=== PATIENT | male | born 1960 | race Caucasian/White ===

== ENCOUNTER 2018-08-15 01:58 | Day surgery (SDC) | payer OTHER ==
[~2018-08-15 01:58] MED LIST: CHOLESTERAL MED; FLUT.05NI; HYDMOR2 PO; ONDA4 PO; WARF7.5
[2018-08-15] MEDS ORDERED: Bisoprolol-Hct1 EAC2 PO (07:56)
--- NOTE | 2018-08-15 08:01 | NUR ---
PT IN RM AFTER SHOT X10 MIN. PT REPORTS HE IS WORKING AND CAME IN FOR INJECTION. NO COMPLAINTS @ THIS TIME AND PT TEACHING ON MED
== END 2018-08-15 07:58 | disposition home or self-care (01) ==
LOC: ATC 01:58
DX: I35.0 Nonrheumatic aortic (valve) stenosis (principal); I10 Essential (primary) hypertension; E78.5 Hyperlipidemia, unspecified; E66.9 Obesity, unspecified; Z79.01 Long term (current) use of anticoagulants; Z79.899 Other long term (current) drug therapy; Z88.0 Allergy status to penicillin
CPT/HCPCS: 96372; J1650

== ENCOUNTER 2018-08-16 07:27 | Day surgery (SDC) | payer OTHER ==
[~2018-08-16 07:27] MED LIST changes: +Bisoprolol-Hct1 EAC2 PO
== END 2018-08-16 07:40 | disposition home or self-care (01) ==
LOC: ATC 07:27
DX: I35.0 Nonrheumatic aortic (valve) stenosis (principal); I10 Essential (primary) hypertension; E78.5 Hyperlipidemia, unspecified; E66.9 Obesity, unspecified; Z79.899 Other long term (current) drug therapy; Z79.01 Long term (current) use of anticoagulants; Z88.0 Allergy status to penicillin
CPT/HCPCS: 96372; J1650

== ENCOUNTER 2018-08-17 07:35 | Day surgery (SDC) | payer OTHER | END 2018-08-17 07:48 | disposition home or self-care (01) | LOC: ATC 07:35 | DX: I35.0 Nonrheumatic aortic (valve) stenosis (principal); Z79.01 Long term (current) use of anticoagulants | CPT/HCPCS: 96372; J1650 ==

== ENCOUNTER 2018-08-18 00:10 | Day surgery (SDC) | payer OTHER | END 2018-08-18 07:48 | disposition home or self-care (01) | LOC: ATC 00:10 | DX: I35.0 Nonrheumatic aortic (valve) stenosis (principal); Z79.01 Long term (current) use of anticoagulants | CPT/HCPCS: 96372; J1650 ==

== ENCOUNTER 2018-08-19 00:16 | Day surgery (SDC) | payer OTHER | END 2018-08-19 07:52 | disposition home or self-care (01) | LOC: ATC 00:16 | DX: I35.0 Nonrheumatic aortic (valve) stenosis (principal); Z79.01 Long term (current) use of anticoagulants; Z88.0 Allergy status to penicillin | CPT/HCPCS: 96372; J1650 ==

== ENCOUNTER 2018-08-20 00:05 | Day surgery (SDC) | payer OTHER | END 2018-08-20 08:13 | disposition home or self-care (01) | LOC: ATC 00:05 | DX: I35.0 Nonrheumatic aortic (valve) stenosis (principal); I10 Essential (primary) hypertension; E78.49 Other hyperlipidemia; E66.9 Obesity, unspecified; Z79.01 Long term (current) use of anticoagulants; Z79.899 Other long term (current) drug therapy; Z88.0 Allergy status to penicillin | CPT/HCPCS: 96372; J1650 ==

== ENCOUNTER 2018-08-21 00:21 | Day surgery (SDC) | payer OTHER | END 2018-08-21 07:47 | disposition home or self-care (01) | LOC: ATC 00:21 | DX: I35.0 Nonrheumatic aortic (valve) stenosis (principal); I10 Essential (primary) hypertension; E78.49 Other hyperlipidemia; E66.9 Obesity, unspecified; Z79.01 Long term (current) use of anticoagulants; Z79.899 Other long term (current) drug therapy; Z88.0 Allergy status to penicillin | CPT/HCPCS: 96372; J1650 ==

== ENCOUNTER 2018-08-23 07:29 | Day surgery (SDC) | payer OTHER ==
[2018-08-23] MEDS ORDERED: WARF7.5 PO (07:45)
== END 2018-08-23 07:40 | disposition home or self-care (01) ==
LOC: ATC 07:29
DX: Z51.81 Encounter for therapeutic drug level monitoring (principal); I35.0 Nonrheumatic aortic (valve) stenosis; M17.0 Bilateral primary osteoarthritis of knee; I10 Essential (primary) hypertension; E66.9 Obesity, unspecified; E78.49 Other hyperlipidemia; R73.01 Impaired fasting glucose; J30.2 Other seasonal allergic rhinitis; J32.8 Other chronic sinusitis; L23.7 Allergic contact dermatitis due to plants, except food; Z79.01 Long term (current) use of anticoagulants; Z88.0 Allergy status to penicillin; Z79.899 Other long term (current) drug therapy; Z95.2 Presence of prosthetic heart valve; Z98.890 Other specified postprocedural states; Z68.34 Body mass index [BMI] 34.0-34.9, adult
CPT/HCPCS: 36416; 85610; 96372; J1650

== ENCOUNTER 2018-08-24 07:46 | Day surgery (SDC) | payer OTHER ==
[~2018-08-24 07:46] MED LIST changes: +WARF7.5 PO
--- NOTE | 2018-08-24 08:47 | NUR ---
FINGERSTICK INR 1.0 MEDICATION GIVEN PER ORDERS.
== END 2018-08-24 08:02 | disposition home or self-care (01) ==
LOC: ATC 07:46
DX: Z51.81 Encounter for therapeutic drug level monitoring (principal); I35.0 Nonrheumatic aortic (valve) stenosis; M17.0 Bilateral primary osteoarthritis of knee; E78.49 Other hyperlipidemia; I10 Essential (primary) hypertension; E66.9 Obesity, unspecified; J30.2 Other seasonal allergic rhinitis; J32.8 Other chronic sinusitis; L23.7 Allergic contact dermatitis due to plants, except food; R73.01 Impaired fasting glucose; Z88.0 Allergy status to penicillin; Z68.34 Body mass index [BMI] 34.0-34.9, adult; Z79.01 Long term (current) use of anticoagulants; Z79.899 Other long term (current) drug therapy
CPT/HCPCS: 36416; 85610; 96372; J1650

== ENCOUNTER 2018-08-25 00:10 | Day surgery (SDC) | payer OTHER ==
--- NOTE | 2018-08-25 07:49 | NUR ---
INR 1.1 ON ATC MACHINE.
== END 2018-08-25 07:45 | disposition home or self-care (01) ==
LOC: ATC 00:10
DX: I35.0 Nonrheumatic aortic (valve) stenosis (principal); Z79.01 Long term (current) use of anticoagulants; Z88.0 Allergy status to penicillin
CPT/HCPCS: 36416; 85610; 96372; J1650

== ENCOUNTER 2018-08-26 02:59 | Day surgery (SDC) | payer OTHER | END 2018-08-26 07:40 | disposition home or self-care (01) | LOC: ATC 02:59 | DX: I35.0 Nonrheumatic aortic (valve) stenosis (principal); I10 Essential (primary) hypertension; E78.49 Other hyperlipidemia; E66.9 Obesity, unspecified; Z79.01 Long term (current) use of anticoagulants; Z79.899 Other long term (current) drug therapy; Z88.0 Allergy status to penicillin | CPT/HCPCS: 85610; 96372; J1650 ==

== ENCOUNTER 2018-08-27 00:20 | Day surgery (SDC) | payer OTHER ==
--- NOTE | 2018-08-27 08:06 | NUR ---
INR IS 1.4 ON ATC MACHINE.
== END 2018-08-27 07:55 | disposition home or self-care (01) ==
LOC: ATC 00:20
DX: I35.0 Nonrheumatic aortic (valve) stenosis (principal); I10 Essential (primary) hypertension; E78.49 Other hyperlipidemia; E66.9 Obesity, unspecified; Z79.01 Long term (current) use of anticoagulants; Z79.899 Other long term (current) drug therapy; Z88.0 Allergy status to penicillin
CPT/HCPCS: 36416; 85610; 96372; J1650

== ENCOUNTER 2018-08-28 00:22 | Day surgery (SDC) | payer OTHER ==
--- NOTE | 2018-08-28 08:41 | NUR ---
FINGERSTICK INR 1.5 MEDICATION GIVEN PER ORDERS
== END 2018-08-28 08:25 | disposition home or self-care (01) ==
LOC: ATC 00:22
DX: Z51.81 Encounter for therapeutic drug level monitoring (principal); I10 Essential (primary) hypertension; E78.5 Hyperlipidemia, unspecified; E66.9 Obesity, unspecified; Z79.01 Long term (current) use of anticoagulants; Z95.2 Presence of prosthetic heart valve; Z88.0 Allergy status to penicillin
CPT/HCPCS: 36416; 85610; 96372; J1650

== ENCOUNTER 2018-08-29 00:11 | Day surgery (SDC) | payer OTHER | END 2018-08-29 08:09 | disposition home or self-care (01) | LOC: ATC 00:11 | DX: I35.0 Nonrheumatic aortic (valve) stenosis (principal); I10 Essential (primary) hypertension; E78.49 Other hyperlipidemia; E66.9 Obesity, unspecified; Z79.899 Other long term (current) drug therapy; Z79.01 Long term (current) use of anticoagulants; Z88.0 Allergy status to penicillin | CPT/HCPCS: 36416; 85610; 96372; J1650 ==

== ENCOUNTER 2018-08-30 08:21 | Day surgery (SDC) | payer OTHER ==
--- NOTE | 2018-08-30 08:42 | NUR ---
FINGERSTICK INR = 2.3 TODAY. LOVENOX GIVEN.
== END 2018-08-30 23:08 | disposition home or self-care (01) ==
LOC: ATC 08:21
DX: I35.0 Nonrheumatic aortic (valve) stenosis (principal); I10 Essential (primary) hypertension; E78.49 Other hyperlipidemia; E66.9 Obesity, unspecified; Z79.01 Long term (current) use of anticoagulants; Z79.899 Other long term (current) drug therapy; Z88.0 Allergy status to penicillin
CPT/HCPCS: 36416; 85610; 96372; J1650

== ENCOUNTER 2018-08-31 07:53 | Day surgery (SDC) | payer OTHER ==
--- NOTE | 2018-08-31 08:12 | NUR ---
PT'S INR HAS BEEN > THAN 2.0 FOR TWO CONSECUTIVE DAYS. DISCONTINUE LOVENOX PER MD ORDER. PT TO F/U WITH PCP RE: COUMADIN DOSING AND INR MONITORING.
== END 2018-08-31 08:02 | disposition home or self-care (01) ==
LOC: ATC 07:53
DX: I35.0 Nonrheumatic aortic (valve) stenosis (principal); I10 Essential (primary) hypertension; E78.49 Other hyperlipidemia; E66.9 Obesity, unspecified; Z79.899 Other long term (current) drug therapy; Z79.01 Long term (current) use of anticoagulants; Z88.0 Allergy status to penicillin
CPT/HCPCS: 36416; 85610; 99211; J1650

== ENCOUNTER 2018-09-01 00:12 | Day surgery (SDC) | payer OTHER | END 2018-09-01 22:47 | disposition home or self-care (01) | LOC: ATC 00:12 | DX: Z51.81 Encounter for therapeutic drug level monitoring (principal); Z79.01 Long term (current) use of anticoagulants; Z79.899 Other long term (current) drug therapy; Q23.0 Congenital stenosis of aortic valve; M17.0 Bilateral primary osteoarthritis of knee; I07.1 Rheumatic tricuspid insufficiency; E78.5 Hyperlipidemia, unspecified; E66.9 Obesity, unspecified; I10 Essential (primary) hypertension; Z88.0 Allergy status to penicillin; R73.01 Impaired fasting glucose; J30.2 Other seasonal allergic rhinitis; J32.8 Other chronic sinusitis; L24.7 Irritant contact dermatitis due to plants, except food ==

== ENCOUNTER → 2019-10-01 | Outpatient (CLI) | payer OTHER ==
[~2019-10-01] MED LIST changes: +BISOPROLOL-HCT1 EAC1 PO; +COUMADIN6 MG PO
[2019-10-01 14:12] LABS: BASOPHILS ABSOLUTE AUTO 0.04 K/mm3 (0.00-0.23); BASOPHILS PERCENT AUTO 1 % (0-2); EOSINOPHILS ABSOLUTE AUTO 0.94 K/mm3 (0.00-0.68); EOSINOPHILS PERCENT AUTO 11 % (0-6); IMMATURE GRAN ABSOLUTE AUTO 0.02 K/mm3 (0.00-0.10); IMMATURE GRAN PERCENT AUTO 0 % (0-1); LYMPHOCYTES ABSOLUTE AUTO 1.04 K/mm3 (0.84-5.20); LYMPHOCYTES PERCENT AUTO 12 % (21-46); MONOCYTES ABSOLUTE AUTO 1.18 K/mm3 (0.16-1.47); MONOCYTES PERCENT AUTO 14 % (4-13); Mean Corpuscular HGB Conc 30.3 g/dL (31.5-36.5); Mean Corpuscular Volume 89 fL (80-100); Mean Platelet Volume 10.3 fL (9.1-12.4); NEUTROPHILS ABSOLUTE AUTO 5.55 K/mm3 (1.96-9.15); NEUTROPHILS PERCENT AUTO 63 % (41-73); Platelet Count 405 K/mm3 (150-400); RDW Coefficient Variation 15.7 % (11.7-14.2); RDW Standard Deviation 50.4 fL (35.1-46.3); Red Blood Cell Count 3.71 M/mm3 (4.30-5.90); White Blood Cell Count 8.77 K/mm3 (4.00-11.30)
[2019-10-01 14:36] LABS: Alanine Aminotransfer (ALT/SGP 28 U/L (12-78); Albumin, Blood 2.5 g/dL (3.4-5.0); Albumin/Globulin Ratio 0.8 (0.8-1.8); Alk Phos 71 U/L (50-136); Anion Gap 5 mmol/L (6-16); Aspartate Aminotrans (AST/SGOT 16 U/L (12-37); Bilirubin, Total 0.2 mg/dL (0.1-1.0); Blood Urea Nitrogen 23 mg/dL (8-24); Bun/Creatinine Ratio 19.3 (12.0-20.0); CO2, Blood 26 mmol/L (21-32); Chloride, Blood 108 mmol/L (98-108); Creatinine, Blood 1.19 mg/dL (0.60-1.20); Globulin, Blood 3.2 g/dL (2.2-4.0); Glomerular Filtration Rate >60 (60-); Glucose, Blood 91 mg/dL (70-99); Potassium, Blood 3.4 mmol/L (3.5-5.5); Sodium, Blood 139 mmol/L (136-145); Total Protein, Blood 5.7 g/dL (6.4-8.2)
== END | disposition home or self-care (01) ==
LOC: LAB HH 13:25 → LAB 13:25
PROVIDERS: Internal Medicine Infectious Disease
DX: R79.82 Elevated C-reactive protein (CRP) (principal); R79.89 Other specified abnormal findings of blood chemistry; R68.89 Other general symptoms and signs; R70.0 Elevated erythrocyte sedimentation rate
CPT/HCPCS: 80053; 85025; 85651; 86140

== ENCOUNTER → 2019-10-08 | Outpatient (CLI) | payer OTHER ==
[2019-10-08 11:03] LABS: BASOPHILS ABSOLUTE AUTO 0.13 K/mm3 (0.00-0.23); BASOPHILS PERCENT AUTO 2 % (0-2); EOSINOPHILS ABSOLUTE AUTO 1.19 K/mm3 (0.00-0.68); EOSINOPHILS PERCENT AUTO 22 % (0-6); Hematocrit 37.6 % (37.0-53.0); Hemoglobin 11.6 g/dL (13.5-17.5); IMMATURE GRAN ABSOLUTE AUTO 0.04 K/mm3 (0.00-0.10); IMMATURE GRAN PERCENT AUTO 1 % (0-1); LYMPHOCYTES ABSOLUTE AUTO 0.82 K/mm3 (0.84-5.20); LYMPHOCYTES PERCENT AUTO 15 % (21-46); MONOCYTES ABSOLUTE AUTO 1.88 K/mm3 (0.16-1.47); MONOCYTES PERCENT AUTO 34 % (4-13); Mean Corpuscular HGB 26.2 pg (26.0-34.0); Mean Corpuscular HGB Conc 30.9 g/dL (31.5-36.5); Mean Corpuscular Volume 85 fL (80-100); Mean Platelet Volume 10.2 fL (9.1-12.4); NEUTROPHILS ABSOLUTE AUTO 1.41 K/mm3 (1.96-9.15); NEUTROPHILS PERCENT AUTO 26 % (41-73); Platelet Count 411 K/mm3 (150-400); RDW Coefficient Variation 14.5 % (11.7-14.2); RDW Standard Deviation 45.1 fL (35.1-46.3); Red Blood Cell Count 4.42 M/mm3 (4.30-5.90); White Blood Cell Count 5.47 K/mm3 (4.00-11.30)
[2019-10-08 11:17] LABS: Alanine Aminotransfer (ALT/SGP 33 U/L (12-78); Albumin, Blood 2.7 g/dL (3.4-5.0); Albumin/Globulin Ratio 0.8 (0.8-1.8); Alk Phos 109 U/L (50-136); Anion Gap 7 mmol/L (6-16); Aspartate Aminotrans (AST/SGOT 16 U/L (12-37); Bilirubin, Total 0.2 mg/dL (0.1-1.0); Blood Urea Nitrogen 20 mg/dL (8-24); Bun/Creatinine Ratio 20.7 (12.0-20.0); CO2, Blood 27 mmol/L (21-32); Calcium, Blood 8.9 mg/dL (8.5-10.1); Chloride, Blood 104 mmol/L (98-108); Creatinine, Blood 0.97 mg/dL (0.60-1.20); Globulin, Blood 3.6 g/dL (2.2-4.0); Glomerular Filtration Rate >60 (60-); Glucose, Blood 141 mg/dL (70-99); Potassium, Blood 3.6 mmol/L (3.5-5.5); Sodium, Blood 138 mmol/L (136-145); Total Protein, Blood 6.3 g/dL (6.4-8.2)
== END | disposition home or self-care (01) ==
LOC: LAB 10:49 → LAB SHORT 10:49
PROVIDERS: Emergency Medicine Emergency Medical Services
DX: R70.0 Elevated erythrocyte sedimentation rate (principal); R79.82 Elevated C-reactive protein (CRP); R79.89 Other specified abnormal findings of blood chemistry; R68.89 Other general symptoms and signs
CPT/HCPCS: 80053; 85025; 85651; 86140

== ENCOUNTER → 2019-10-22 | Outpatient (CLI) | payer OTHER ==
[2019-10-22 10:59] LABS: BASOPHILS ABSOLUTE AUTO 0.19 K/mm3 (0.00-0.23); BASOPHILS PERCENT AUTO 2 % (0-2); EOSINOPHILS ABSOLUTE AUTO 1.55 K/mm3 (0.00-0.68); EOSINOPHILS PERCENT AUTO 15 % (0-6); Hematocrit 36.5 % (37.0-53.0); Hemoglobin 11.2 g/dL (13.5-17.5); IMMATURE GRAN PERCENT AUTO 2 % (0-1); LYMPHOCYTES ABSOLUTE AUTO 0.97 K/mm3 (0.84-5.20); LYMPHOCYTES PERCENT AUTO 10 % (21-46); MONOCYTES ABSOLUTE AUTO 1.73 K/mm3 (0.16-1.47); MONOCYTES PERCENT AUTO 17 % (4-13); Mean Corpuscular HGB 25.4 pg (26.0-34.0); Mean Corpuscular HGB Conc 30.7 g/dL (31.5-36.5); Mean Corpuscular Volume 83 fL (80-100); Mean Platelet Volume 10.2 fL (9.1-12.4); NEUTROPHILS ABSOLUTE AUTO 5.53 K/mm3 (1.96-9.15); NEUTROPHILS PERCENT AUTO 54 % (41-73); Platelet Count 283 K/mm3 (150-400); RDW Coefficient Variation 14.5 % (11.7-14.2); RDW Standard Deviation 44.5 fL (35.1-46.3); Red Blood Cell Count 4.41 M/mm3 (4.30-5.90); White Blood Cell Count 10.17 K/mm3 (4.00-11.30)
[2019-10-22 11:12] LABS: Alanine Aminotransfer (ALT/SGP 35 U/L (12-78); Albumin, Blood 2.7 g/dL (3.4-5.0); Albumin/Globulin Ratio 0.8 (0.8-1.8); Alk Phos 104 U/L (50-136); Anion Gap 6 mmol/L (6-16); Aspartate Aminotrans (AST/SGOT 17 U/L (12-37); Bilirubin, Total 0.2 mg/dL (0.1-1.0); Blood Urea Nitrogen 22 mg/dL (8-24); CO2, Blood 28 mmol/L (21-32); Calcium, Blood 8.1 mg/dL (8.5-10.1); Chloride, Blood 105 mmol/L (98-108); Creatinine, Blood 0.96 mg/dL (0.60-1.20); Globulin, Blood 3.4 g/dL (2.2-4.0); Glomerular Filtration Rate >60 (60-); Glucose, Blood 176 mg/dL (70-99); Potassium, Blood 3.4 mmol/L (3.5-5.5); Sodium, Blood 139 mmol/L (136-145); Total Protein, Blood 6.1 g/dL (6.4-8.2)
== END | disposition home or self-care (01) ==
LOC: LAB 10:53 → LAB SHORT 10:53
PROVIDERS: Internal Medicine Infectious Disease
DX: R70.0 Elevated erythrocyte sedimentation rate (principal); R79.89 Other specified abnormal findings of blood chemistry; R79.82 Elevated C-reactive protein (CRP); R68.89 Other general symptoms and signs
CPT/HCPCS: 80053; 85025; 85651; 86140

== ENCOUNTER → 2019-10-29 | Outpatient (CLI) | payer OTHER ==
[2019-10-29 16:45] LABS: Alanine Aminotransfer (ALT/SGP 45 U/L (12-78); Albumin, Blood 2.8 g/dL (3.4-5.0); Albumin/Globulin Ratio 0.7 (0.8-1.8); Alk Phos 113 U/L (50-136); Anion Gap 7 mmol/L (6-16); Aspartate Aminotrans (AST/SGOT 21 U/L (12-37); Bilirubin, Total 0.3 mg/dL (0.1-1.0); Blood Urea Nitrogen 17 mg/dL (8-24); Bun/Creatinine Ratio 20.1 (12.0-20.0); CO2, Blood 26 mmol/L (21-32); Calcium, Blood 9.1 mg/dL (8.5-10.1); Chloride, Blood 105 mmol/L (98-108); Creatinine, Blood 0.84 mg/dL (0.60-1.20); Globulin, Blood 4.3 g/dL (2.2-4.0); Glomerular Filtration Rate >60 (60-); Glucose, Blood 109 mg/dL (70-99); Potassium, Blood 3.9 mmol/L (3.5-5.5); Sodium, Blood 138 mmol/L (136-145); Total Protein, Blood 7.1 g/dL (6.4-8.2)
[2019-10-29 17:01] LABS: Creatinine, Urine Random 44.2 mg/dL (27.00-270.00); Protein, Urine Random 72.2 mg/dL (0.0-11.9); Protein/Creat Ratio, Ur Random 1.6
== END | disposition home or self-care (01) ==
LOC: LAB SHORT 15:10 → LAB 15:10
PROVIDERS: Internal Medicine
DX: N17.9 Acute kidney failure, unspecified (principal); I38 Endocarditis, valve unspecified; R80.9 Proteinuria, unspecified
CPT/HCPCS: 80053; 82570; 84156